=== PATIENT | male | born 2000 | race African-American/Black ===

== ENCOUNTER 2024-06-09 16:48 | Emergency (ER) | payer MEDICAID ==
[~2024-06-09] VITALS: Ht 177.8 cm; Wt 72.6 kg
[2024-06-09 16:56] VITALS: BP 148/89; TEMP 98.7
[2024-06-09] MEDS ORDERED: LIDOCAINE 1%-EPI 1:100,000 20 ML VIAL ONE (17:03)
[2024-06-09] MEDS: LIDOCAINE 1%-EPI 1:100,000 50 ML VIAL IJ ONE (17:40)
[2024-06-09 17:42] VITALS: O2SAT 100
== END 2024-06-09 17:42 | disposition home or self-care (01) ==
LOC: ER 16:48
DX: S01.111A Laceration without foreign body of right eyelid and periocular area, initial encounter (principal); X58.XXXA Exposure to other specified factors, initial encounter; Y93.67 Activity, basketball; Y92.39 Other specified sports and athletic area as the place of occurrence of the external cause; Y99.8 Other external cause status
CPT/HCPCS: 12013; 99282; J3490